=== PATIENT | female | born 1995 | race Caucasian/White ===

== ENCOUNTER → 2019-03-11 | Outpatient (CLI) | payer OTHER ==
--- NOTE | 2019-03-11 17:18 | REP ---
TRIPLE PHASE BONE SCAN BILATERAL LOWER LEGS: Following the intravenous administration of 20.5 mCi of technetium 99m MDP, the patient's lower legs are imaged in the flow phase in the anterior and posterior projections, showing symmetrical blood flow. Immediate blood pool and two-hour delayed images are performed of the lower legs in various projections. There is no abnormal blood pooling. Delayed images show increased linear uptake along the tibial shafts bilaterally in a fairly symmetrical pattern compatible with bilateral stress periostitis or almazan splints. No stress fracture is seen bilaterally. Electronically Signed by Virgilio Seaman MD 03/14/2019 10:02 A
== END ==
LOC: M RAD 10:43
PROVIDERS: ATTEND Physician Assistant
DX: M79.605 Pain in left leg (principal)
CPT/HCPCS: 78315; A9503